=== PATIENT | male | born 1990 | race Two or more races ===

== ENCOUNTER 2022-11-14 07:35 | Emergency (ER) | payer OTHER ==
[~2022-11-14] VITALS: Ht 172.7 cm; Wt 99.8 kg
[2022-11-14 07:47] VITALS: BP 134/84
[2022-11-14] MEDS ORDERED: KETOROLAC TROMETH 60MG/2ML VIAL IM ONE (09:00)
[2022-11-14] MEDS ORDERED: IBUP800T26 PO (13:24)
[2022-11-14] MEDS ORDERED: HYDR-4902 PO (13:24)
== END 2022-11-14 13:45 | disposition home or self-care (01) ==
LOC: ER 07:35
DX: S52.332A Displaced oblique fracture of shaft of left radius, initial encounter for closed fracture (principal); V89.2XXA Person injured in unspecified motor-vehicle accident, traffic, initial encounter; Y93.89 Activity, other specified; Y92.488 Other paved roadways as the place of occurrence of the external cause; Y99.8 Other external cause status
CPT/HCPCS: 73110; 73130; 96372; 99284; J1885